=== PATIENT | female | born 1955 | race Caucasian/White ===

== ENCOUNTER 2019-08-23 14:22 | Emergency (ER) | payer MEDICAID, OTHER ==
[~2019-08-23] VITALS: Ht 152.4 cm; Wt 59.9 kg
[~2019-08-23 14:22] MED LIST: ACET-73 PO; ALBU2.5V38 NEB; AMLO5TAB9 PO; CLON0.1T PO; FURO40TA5 PO; HUM10VIA5 SQ; INSU100V28 SQ; LEVO500T90 PO; LORA0.5T PO; LOSA1TAB3 PO
--- NOTE | 2019-08-23 14:44 | NUR ---
PT BIB [facility] C/O SYNCOPAL EPISODE AT HOME. PT AAOX4, DENIES ANY HEADACHE,AMBULATORY W/ STEADY GAIT, BREATHING EVEN AND UNLABORED. PT CONNECTED TO THE MONITOR
[2019-08-23] MEDS ORDERED: IV NS 0.9% 500 ML BAG IV ONE (15:00)
[2019-08-23 15:02] LABS: BASOPHILS % (AUTO) 0.7 % (0.0-2.0); EOSINOPHILS % (AUTO) 4.5 % (0.0-6.0); HEMATOCRIT 32 % (33-45); HEMOGLOBIN 10.4 g/dL (11.5-14.8); LYMPHOCYTES # (AUTO) 0.9 /CMM (0.8-4.8); LYMPHOCYTES % (AUTO) 20.2 % (20.0-44.0); MEAN CORPUSCULAR HGB CONC 32 g/dl (31.0-36.0); MEAN CORPUSCULAR VOLUME 85 fL (82-100); MONOCYTES # (AUTO) 0.4 /CMM (0.1-1.30); MONOCYTES % (AUTO) 8.7 % (2.0-12.0); NEUTROPHILS # (AUTO) 2.9 /CMM (1.8-8.9); NEUTROPHILS % (AUTO) 65.9 % (43.0-81.0); PLATELET COUNT (AUTO) 169 /CMM (150-450); RED BLOOD CELL COUNT(AUTO) 3.76 MIL/uL (4.0-5.2); WHITE BLOOD COUNT (AUTO) 4.4 K/uL (4.3-11.0)
[2019-08-23 15:09] LABS: CALCIUM, SERUM 7.5 mg/dL (8.5-10.1); CREATININE 3.3 mg/dL (0.6-1.3); POTASSIUM 3.4 mmol/L (3.5-5.1)
[2019-08-23 15:15] LABS: ALBUMIN 3.2 g/dL (3.4-5.0); BILIRUBIN,DIRECT 0.1 mg/dL (0.0-0.2); BILIRUBIN,TOTAL 0.3 mg/dL (0.2-1.0); TOTAL PROTEIN, SERUM 7.6 g/dL (6.4-8.2)
--- NOTE | 2019-08-23 15:20 | NUR ---
CALLED DR GATES, LEFT VOICEMAIL.
--- NOTE | 2019-08-23 15:50 | NUR ---
DR BURDICK RETURNED THE PAGE.
--- NOTE | 2019-08-23 15:55 | NUR ---
CALLED DR BURDICK AND LEFT A MESSAGE. AWAITING HIS CALL
[2019-08-23 17:34] VITALS: BP 150/88
--- NOTE | 2019-08-23 17:40 | NUR ---
Note [email or web address] in EDM - 08/23/19 at 1742 by EFRAÍN Patient does not wish to proceed with medical care recommended by ( ). Patient given information related to possible complications, up to and including , which could occur as a result of leaving the hospital at this time. Patient verbalizes understanding of risks involved due to leaving against medical advice. Patient has signed AMA form.
--- NOTE | 2019-08-23 17:42 | NUR ---
Patient does not wish to proceed with medical care recommended by Dr Lima. Patient given information related to possible complications, up to and including , which could occur as a result of leaving the hospital at this time. Patient verbalizes understanding of risks involved due to leaving against medical advice. Patient has signed AMA form.
== END 2019-08-23 17:43 | disposition left against medical advice (07) ==
LOC: ER 14:24
DX: R19.7 Diarrhea, unspecified (principal); N28.9 Disorder of kidney and ureter, unspecified; E11.9 Type 2 diabetes mellitus without complications; I10 Essential (primary) hypertension; Z88.1 Allergy status to other antibiotic agents; Z79.4 Long term (current) use of insulin; Z79.899 Other long term (current) drug therapy
CPT/HCPCS: 36415; 80048; 80076; 85025; 99283; J7040